=== PATIENT | female | born 1970 | race Caucasian/White ===

== ENCOUNTER 2022-09-11 08:45 | Outpatient (CLI) | payer OTHER, SELFPAY ==
--- NOTE | 2022-09-11 08:45 | CRLHL7_ITS ---
For Patients: As a result of the Century Cures Act, medical imaging exams and procedure reports are released immediately into your electronic medical record. You may view this report before your referring provider. If you have questions, please contact your health care provider. BILATERAL SCREENING MAMMOGRAM WITH COMPUTER-AIDED DETECTION AND TOMOSYNTHESIS TECHNIQUE: CC and MLO views were obtained. These mammographic images have been obtained using full-field digital technique. These mammographic images were interpreted with the benefit of computer-aided detection. Breast Tomosynthesis was used in this interpretation. COMPARISON FILM: 06/13/21, 03/16/20, 09/29/18. FINDINGS: The breasts are heterogeneously dense, which may obscure small masses IMPRESSION: There is no radiographic evidence for malignancy. ASSESSMENT: BI-RADS Category 1: Negative RECOMMENDATION: Routine screening mammogram in 1 year. A lay language report of this examination will be provided to the patient. Mayco Schmitt M.D. Diagnostic Radiologist [email or web address] AIDA/don / be/Dictated by: Mayco Schmitt MD @ 09/11/2022 12:03:00 PM (Electronically Signed)
== END 2022-09-11 08:46 | disposition home or self-care (01) ==
PROVIDERS: PCP Family Medicine; Visit Provider Family Medicine
DX: Z12.31 Encounter for screening mammogram for malignant neoplasm of breast (principal); R92.2 Inconclusive mammogram
CPT/HCPCS: 77063; 77067

== ENCOUNTER 2023-01-12 20:36 | Emergency (ER) | payer OTHER, SELFPAY ==
[2023-01-12 20:40] VITALS: BP 149/81; PULSE 88; RESP 18; TEMP 36.1; O2SAT 98
--- NOTE | 2023-01-12 21:02 | CRLHL7_ITS ---
For Patients: As a result of the Cures Act, medical imaging exams and procedure reports are released immediately into your electronic medical record. You may view this report before your referring provider. If you have questions, please contact your health care provider. Indication: Fall, injury, pain in left 5th finger, feels numb Technique: Three views of the left hand. Patient unable to remove ring. Comparison: None Findings and Impression: Ring on the proximal phalanx of the 4th digit limits evaluation. Acute, comminuted, mildly displaced fracture of the 5th proximal phalanx base with no intra-articular extension and apex volar angulation. [place] dorsal angulation at the level of the 5th PIP joint. Marked soft tissue swelling of the 5th digit. Dictated by Chelsey Crooks MD @ 01/12/2023 9:46:50 PM (Electronically Signed)
[2023-01-12] MEDS: IBUPROFEN 200 MG TABLET 600 MG PO (21:21)
--- NOTE | 2023-01-12 21:28 | ED_ITS ---
HPI - General Adult General Chief complaint: Extremity Pain/Injury, Upper Stated complaint: L hand pinky injury Time Seen by Provider: 01/12/23 20:56 Source: patient and family Mode of arrival: ambulatory History of Present Illness HPI narrative: 52-year-old female presents the emergency department within an hour of a fall while walking in her neighbor's [place]berry field. She was on her nightly exercise type walk. Unfortunately the sprinklers tripped on, startling her, causing the dog to walk across her path. She tumbled over the dog, falling forward. Adult daughter witnessed the fall, no signs of head injury or loss of consciousness. Patient landed strangely on her hand and notes deformity and pain in the left 5th finger. There is a little bit of pain in the 4th finger as well but not as much as the 5th. It is difficult to move the finger. No prior history of injury, fracture or surgery to this finger or hand. No other injuries identified. No pain in the wrist. Has not taken any Tylenol or ibuprofen to help with her symptoms. Does have some numbness and tingling in the 4th and 5th finger on the left hand, no other areas. Difficult to move 4th and 5th fingers. Past medical history she states is benign, no major long-term health problems or long-term medications. No allergies. Nonsmoker with no suspicion for intoxication tonight. ROS is negative for other neurological, generalized, musculoskeletal or skin injuries. Related Data Allergies Allergy/AdvReac Type Severity Reaction Status Date / Time No Known Drug Allergies Allergy Verified 01/12/23 20:44 [facility] Social History Non-prescribed substance use: denies use Exam Const: Vital Signs, click to edit/add: Vital Signs - 24 hr 01/12/23 20:40 Temperature 97.0 F L Pulse Rate [Right Pulse Oximeter] 88 Respiratory Rate 18 Blood Pressure [Ri ght Upper Arm] 149/81 H Pulse Oximetry 98 Oxygen Delivery Me thod Room Air Documenting provider has reviewed patient's vital signs: yes Common normals: no apparent distress and alert General appearance: cooperative, comfortable and well kempt Orientation/consciousness: Yes awake HENMT: Common normals: normocephalic and head/scalp atraumatic Head and scalp: normocephalic and atraumatic Eye: Common normals: conjunctivae normal General eye: normal appearance of both eyes Conjunctiva: conjunctiva(e) normal Resp: Common normals: normal respiratory effort and no use of accessory muscles Effort & inspection: able to speak in complete sentences Cardio: Common normals: regular rate and regular rhythm Rate: regular rate Rhythm: regular rhythm Other: Regular radial pulse in left wrist, normal capillary refill in fingers Extremity: Other: Left wrist with no tenderness, deformity. The left 5th finger is abnormally abducted and slightly displaced dorsally at the proximal phalanx. Hand has some tenderness to palpation at the distal metacarpal on the 4th and 5th digits. Thumb has completely normal range of motion flexion, extension opposition. Second and 3rd fingers move normally with no tenderness or deformity. Good radial pulses. Hesitant to abduct and adduct the 4th and 5th fingers but they do twitch slightly and move while she is manipulating the other fingers I observed. There are no other obvious injury or deformity to the right hand or left elbow. Neuro: Sensorium/orientation: awake and alert Motor exam: no movement abnormalities noted Psych: Appearance: well kempt Activity/motor behavior: appropriate eye contact Mood and affect: euthymic mood Skin: Narrative: Very slight abrasions on hand, not near area of suspected fracture Course Course Hospital Course: Differential diagnosis including fracture, dislocation, nerve injury, vascular injury, among others. No signs of intoxication or head injury. Ibuprofen 6 her mg p.o. x1 and x-rays planned. Will re-evaluate Reevaluation(s) Reevaluation #1: Reviewed imaging findings with patient, fracture of proximal phalanx. Slight angulation noted. No obvious signs of injury to the 4th finger that we could not remove her ring. I have looked at this and multiple times at multiple angles in do not think that removal of the ring as necessary. Discussed fracture management. Procedure: Hematoma block. Area was cleansed with Betadine x3 and the proximal phalanx of the left 5th finger was injected with 1 mL of 1% lidocaine without epinephrine with excellent anesthesia. She had marked immediate relief. The finger was then gently manipulated back into anatomic position very easily, Betadine was washed off and she was placed in an ulnar gutter type splint from the tip of the 5th finger to the base of the 5th proximal metatarsal keeping the 5th finger in good alignment. This was then wrapped with an Woody wrap, care discussed. Good capillary refill and sensation at the tip of the finger followi ng splint placement. Patient will continue Tylenol and ibuprofen as needed for pain control. Referral has been placed for Orthopedics. No lifting over 10 lb encouraged. Okay to shower if she can safely cover the Woody wrap and splint and keep dry. Typical alarm symptoms and warnings discussed. Patient verbalizes understanding and agreement. Vital Signs Vital signs: Initial Vital Signs Temperature 97.0 F L 01/12/23 20:40 Temperature Source Temporal Artery Scan 01/12/23 20:40 Pulse Rate 88 01/12/23 20:40 Pulse Rhythm Regular 01/12/23 20:40 Respiratory Rate 18 01/12/23 20:40 Blood Pressure 149/81 H 01/12/23 20:40 Blood Pressure Mean 103 01/12/23 20:40 Blood Pressure Position Sitting 01/12/23 20:40 Pulse Oximetry 98 01/12/23 20:40 Oxygen Delivery Method Room Air 01/12/23 20:40 Vital Signs Temperature 97.0 F L 01/12/23 20:40 Pulse Rate 88 01/12/23 20:40 Respiratory Rate 18 01/12/23 20:40 Blood Pressure 149/81 H 01/12/23 20:40 Pulse Oximetry 98 01/12/23 20:40 Oxygen Delivery Method Room Air 01/12/23 20:40 Temperature 97.0 F L 01/12/23 20:40 Pulse Rate 88 01/12/23 20:40 Respiratory Rate 18 01/12/23 20:40 Blood Pressure 149/81 H 01/12/23 20:40 Pulse Oximetry 98 01/12/23 20:40 Oxygen Delivery Method Room Air 01/12/23 20:40 Medical Decision Making Imaging Data Left hand x-ray: Attestation: I have reviewed the pertinent imaging results. My impression: Fracture proximal phalanx 5th finger Radiologist's impression: Findings and Impression: Ring on the proximal phalanx of the 4th digit limits evaluation. Acute, comminuted, mildly displaced fracture of the 5th proximal phalanx base with no intra-articular extension and apex volar angulation. [place] dorsal angulation at the level of the 5th PIP joint. Marked soft tissue swelling of the 5th digit. Discharge Plan Discharge Clinical Impression: Finger fracture, left Patient Disposition: Home w/ Parent or Adult Condition: Improved Instructions: Finger Fracture (ED) Additional Instructions: As we discussed, there is a fracture between the 1st and 2nd knuckle on your little finger of the left hand. I did twist this back into proper alignment. It has been placed in a splint. I would like for you to leave this on until you see the orthopedic provider. It is okay to shower but you will need to wrap the splint and Woody wrap in a plastic bag and secure with tape. If the Woody wrap becomes wet, remove and replace with a dry product. It is okay to loosen the Woody wrap around the wrist and hand for comfort. Please do not remove the finger portion. If the clothing busheler becomes uncomfortable, you may carefully removed the splint, remove that cloth and carefully place the finger and hand back into the splint, then replaced the Woody wrap. Proper dosing of Tylenol for pain is 1000 mg every 6 hours. You may alternate this with ibuprofen 600 mg every 6 hours. Remember that bone pain tends to hurt more at night. Try to keep the hand elevated. It is okay to use Tylenol p.m. which is just Tylenol plus Benadryl and or melatonin to help you sleep. I have placed a referral to the orthopedic team to recheck this fracture. I requested this in about a week or so. They will likely change out your splint for something more convenient. If you have not heard from them by a close of business on Friday, please call them Friday. The number will be in closed. Some slight numbness and tingling is expected. Severe shooting pain would not be expected and would warrant repeat emergency room visit. It does not look like the other fingers have fractures but they certainly are sprain and may be achy. The Tylenol and ibuprofen should help with this. Activity Level: Activity as Tolerated Discharge Diet: Regular Follow Up/Referrals: Kevin Mi MD [Staff Physician] - 7 Days (First available Orthopedics, recheck 5th finger fracture) Cathie Castillo DO [Primary Care Provider] - Stand Alone Forms: [employer] Info Instructions
== END 2023-01-12 22:33 | disposition home or self-care (01) ==
PROVIDERS: Emergency Provider Family Medicine; PCP Family Medicine
DX: S62.617A Displaced fracture of proximal phalanx of left little finger, initial encounter for closed fracture (principal); W01.0XXA Fall on same level from slipping, tripping and stumbling without subsequent striking against object, initial encounter; Y93.01 Activity, walking, marching and hiking
CPT/HCPCS: 26725; 73130; 99283; 99284; A9270

== ENCOUNTER 2023-06-19 11:15 | Outpatient (RCR) | payer OTHER, SELFPAY | END 2023-08-21 10:40 | disposition home or self-care (01) | PROVIDERS: PCP Family Medicine; Visit Provider Orthopaedic Surgery Hand Surgery | DX: S62.617A Displaced fracture of proximal phalanx of left little finger, initial encounter for closed fracture (principal); M79.645 Pain in left finger(s); R27.9 Unspecified lack of coordination; Z51.89 Encounter for other specified aftercare | CPT/HCPCS: 97035; 97110; 97140; 97165; X5282 ==

== ENCOUNTER 2024-03-23 09:32 | Outpatient (CLI) | payer OTHER, SELFPAY ==
--- NOTE | 2024-03-23 09:45 | CRLHL7_ITS ---
For Patients: As a result of the Century Cures Act, medical imaging exams and procedure reports are released immediately into your electronic medical record. You may view this report before your referring provider. If you have questions, please contact your health care provider. BILATERAL SCREENING MAMMOGRAM WITH COMPUTER-AIDED DETECTION AND TOMOSYNTHESIS TECHNIQUE: CC and MLO views were obtained. These mammographic images have been obtained using full-field digital technique. These mammographic images were interpreted with the benefit of computer-aided detection. Breast Tomosynthesis was used in this interpretation. COMPARISON FILM: 09/11/22, 06/13/21, 03/16/20. FINDINGS: There are scattered areas of fibroglandular density IMPRESSION: There is no radiographic evidence for malignancy. ASSESSMENT: BI-RADS Category 1: Negative RECOMMENDATION: Routine screening mammogram in 1 year. A lay language report of this examination will be provided to the patient. Mayco Schmitt M.D. Diagnostic Radiologist [email or web address] JULIENNE/Dictated by: Mayco Schmitt MD @ 03/31/2024 11:10:00 AM (Electronically Signed)
== END 2024-03-23 09:33 | disposition home or self-care (01) ==
LOC: MAMMO 09:33
PROVIDERS: PCP Family Medicine; Visit Provider Family Medicine
DX: Z12.31 Encounter for screening mammogram for malignant neoplasm of breast (principal)
CPT/HCPCS: 77063; 77067

== ENCOUNTER 2025-04-26 17:22 | Outpatient (CLI) | payer OTHER, SELFPAY ==
--- NOTE | 2025-04-26 17:40 | CRLHL7_ITS ---
For Patients: As a result of the Century Cures Act, medical imaging exams and procedure reports are released immediately into your electronic medical record. You may view this report before your referring provider. If you have questions, please contact your health care provider. INDICATION: BILATERAL SCREENING MAMMOGRAM, ASYMPTOMATIC 55 Y/O FEMALE COMPARISON: 03/23/2024, 09/11/2022, 06/13/2021 TECHNIQUE: Digital mammogram in CC and MLO projections including computer-aided detection (CAD) and tomosynthesis. BREAST COMPOSITION: The breasts are heterogeneously dense, which may obscure small masses. FINDINGS: No suspicious findings. ASSESSMENT: BI-RADS 2 Benign RECOMMENDATION: Annual screening mammogram. A lay language report of this examination will be provided to the patient. Dictated by: Mayco Schmitt MD @ 04/28/2025 08:51:46 (Electronically Signed)
== END 2025-04-26 17:23 | disposition home or self-care (01) ==
LOC: MAMMO 17:22
PROVIDERS: PCP Family Medicine; Visit Provider Family Medicine
DX: Z12.31 Encounter for screening mammogram for malignant neoplasm of breast (principal); R92.333 Mammographic heterogeneous density, bilateral breasts
CPT/HCPCS: 77063; 77067